=== PATIENT | female | born 1980 | race Caucasian/White ===

== ENCOUNTER 2018-12-04 17:28 | Emergency (ER) | payer OTHER ==
[2018-12-04] MEDS ORDERED: Acetaminophen/HYDROcodone 325-5 MG Tab PO ONE (17:29)
--- NOTE | 2018-12-04 19:07 | EDM.PDOC ---
ED HPI GENERAL MEDICAL PROBLEM - General Stated Complaint: R FOOT INJURY Time Seen by Provider: 12/04/18 18:50 Source of Information: Reports: Patient History Limitations: Reports: No Limitations - History of Present Illness INITIAL COMMENTS - FREE TEXT/NARRATIVE: 38-year-old female who reports at approximately 2:30 PM today she was moving a trailer that was unloaded and the trailer hitch slipped and landed directly on the top of her right foot. He was wearing a pair of boots at the time. She had immediate pain in the foot and it was a 9/10 at its worst. It is a throbbing and sharp pain. Currently the pain is a 7/10. She reports the pain seemed to get worse when she took her boot off and she noticed some increased swelling since then. The pain is directly over the top of her mid foot. She has some numbness and tingling into the toes. She has no ankle tenderness. There are no open wounds. The pain is worse with palpation and with movement of her foot. She has been able to her weight but she has required crutches. There were no other injuries. There are no other associated signs or symptoms. There are no other modifying factors. 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: Other (see below) (Nothing) - Related Data Allergies Allergy/AdvReac Type Severity Reaction Status Date / Time sulfamethoxazole Allergy Hives Verified 12/04/18 19:13 [From Bactrim] trimethoprim [From Bactrim] Allergy Hives Verified 12/04/18 19:13 Home Meds: Home Meds DULoxetine [Cymbalta] 60 mg PO DAILY 12/04/18 [History] Hydrocodone/Acetaminophen [[place] 5-325 Tablet] 1 - 2 tab PO Q6H PRN #6 tablet [Rx] tiZANidine HCl [Zanaflex] 2 mg PO ASDIRECTED PRN 12/04/18 [History] traZODone HCl [Trazodone HCl] 150 mg PO BEDTIME 12/04/18 [History] Past Medical History Musculoskeletal History: Reports: Neck Pain, Chronic Psychiatric History: Reports: Anxiety, Depression - Past Surgical History HEENT Surgical History: Reports: Myringotomy w Tube(s), Oral Surgery ([place] teeth extraction) Neurological Surgical History: Reports: Spinal Fusion (Anterior cervical fusion) Musculoskeletal Surgical History: Reports: Arthroscopic Knee (Right knee) Social & Family History - Tobacco Use Smoking Status *Q: Never Smoker - Alcohol Use Alcohol Use History: Yes Alcohol Use Frequency: Rarely - Living Situation & Occupation Living situation: Reports: with Family Occupation: Employed (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.) Review of Systems - Review of Systems Review Of Systems: See Below Constitutional: Reports: No Symptoms Eyes: Reports: No Symptoms Ears: Reports: No Symptoms Nose: Reports: No Symptoms Mouth/Throat: Reports: No Symptoms Respiratory: Reports: No Symptoms Cardiovascular: Reports: No Symptoms GI/Abdominal: Reports: No Symptoms Genitourinary: Reports: No Symptoms Musculoskeletal: Reports: Foot Pain (Right foot) Skin: Reports: No Symptoms (No open wounds) Neurological: Reports: No Symptoms Psychiatric: Reports: No Symptoms ED EXAM, GENERAL - Physical Exam Exam: See Below Exam Limited By: No Limitations General Appearance: Alert, WD/WN, Moderate Distress (Secondary to the pain) Eye Exam: Bilateral Eye: EOMI, Normal Inspection, PERRL Ears: Normal External Exam, Hearing Grossly Normal Ear Exam: Bilateral Ear: Auricle Normal Nose: Normal Inspection, Normal Mucosa, No Blood Throat/Mouth: Normal Inspection, Normal Lips, Normal Oropharynx, Normal Voice, No Airway Compromise Head: Atraumatic, Normocephalic Neck: Normal Inspection, Supple, Non-Tender, Full Range of Motion Respiratory/Chest: No Respiratory Distress, Lungs Clear, Normal Breath Sounds, No Accessory Muscle Use, Chest Non-Tender Cardiovascular: Normal Peripheral Pulses, Regular Rate, Rhythm, No JVD Peripheral Pulses: 2+: Radial (L), Radial (R), Dorsalis Pedis (L), Dorsalis Pedis (R) GI/Abdominal: Soft, No Distention Back Exam: Normal Inspection Extremities: Normal Range of Motion (Despite pain), Normal Capillary Refill, Pedal Edema (Mild swelling over the top of the right midfoot.), Other (No crepitus or bony deformity noted.) Neurological: Alert, Oriented, CN II-XII Intact, Normal Cognition, No Motor/ Sensory Deficits Skin Exam: Warm, Dry, Intact, Normal Color, No Rash Course - Orders/Labs/Meds Orders: Active Orders 24 hr Category Date Time Status Foot Comp Min 3V Rt [CR] Stat Exams 12/04/18 18:01 Taken Lower Extremity wo Cont Rt [CT] Stat Exams 12/04/18 19:03 Taken - Radiology Interpretation Free Text/Narrative:: X-ray of right foot shows no definite fracture. CT scan of right foot shows no fracture or malalignment per the [facility] radiologist. - Re-Assessments/Exams Free Text/Narrative Re-Assessment/Exam: 12/04/18 18:50: X-ray of patient's right foot showed no definite fracture. She has significant pain in the foot and there is some mild swelling here no crepitus or bony deformity noted. I will send her for a CT scan of her foot to rule out occult fracture in the mid foot. 12/04/18 20:30: CT scan of the right foot showed no fracture per the radiologist. She appears to have a bruise to this area. We will place an Jeffry wrap to her right foot area and she can use crutches that she has at home and begin bearing weight as tolerated on her right foot. She may also take ibuprofen for the pain. I did give her a starter pack of hydrocodone and a small prescription of hydrocodone (total number of 10 tablets between the 2) she may use for more severe pain. Departure - Departure Time of Disposition: 21:00 Disposition: Home, Self-Care 01 Condition: Good Clinical Impression: Contusion of right foot, initial encounter - Discharge Information Prescriptions: Hydrocodone/Acetaminophen [[place] 5-325 Tablet] 1 - 2 tab PO Q6H PRN #6 tablet PRN Reason: Moderate to severe pain Instructions: Foot Contusion, [id number] Referrals: Dilcia Delaney NP [Primary Care Provider] - Additional Instructions: The x-ray of your right foot did not show a definite fracture and the CT scan showed no fracture. You appear to have a bruise or contusion to your right foot. Use the Jeffry wrap for comfort and support. Use crutches with weightbearing as tolerated on your right foot. Apply ice packs intermittently to your right foot. You may take ibuprofen for your pain as needed. Medication as prescribed for more severe pain (hydrocodone 5/325). Follow-up with your primary doctor if you are having persisting pain or problems with your right foot. Back to the emergency department for increase in pain, redness, increased swelling or any other concerning sign or symptom. - My Orders Last 24 Hours: My Active Orders 12/04/18 18:01 Foot Comp Min 3V Rt [CR] Stat 12/04/18 19:03 Lower Extremity wo Cont Rt [CT] Stat - Assessment/Plan Last 24 Hours: My Active Orders 12/04/18 18:01 Foot Comp Min 3V Rt [CR] Stat 12/04/18 19:03 Lower Extremity wo Cont Rt [CT] Stat
--- NOTE | 2018-12-06 13:16 | CR ---
INDICATION: Trailer hitch fell on foot, pain. RIGHT FOOT: Three views of the right foot revealed no evidence of a fracture, dislocation, or other significant bone or joint abnormality. No significant soft tissue swelling was identified. If occult fracture site is suspected clinically, re-examination in 10-14 days may be helpful. MTDD
== END 2018-12-04 21:00 | disposition home or self-care (01) ==
LOC: FB.ED 17:28
DX: S90.31XA Contusion of right foot, initial encounter (principal); F41.9 Anxiety disorder, unspecified; F32.9 Major depressive disorder, single episode, unspecified; Z88.2 Allergy status to sulfonamides; Z88.1 Allergy status to other antibiotic agents; Z79.899 Other long term (current) drug therapy; W20.8XXA Other cause of strike by thrown, projected or falling object, initial encounter
CPT/HCPCS: 73630-RT; 73700-RT; 99283-25; A9270-GY